=== PATIENT | male | born 1945 | race Caucasian/White ===

== ENCOUNTER 2016-12-21 09:32 | Day surgery (SDC) | payer MEDICARE, BC ==
--- NOTE | ~2016-12-21 | EGD ---
EGD REPORT [facility] [address] [place] [address] NAME: SUNNY BROWN : [birth year] STATUS : REG [facility]#: [id number] AGE: 71 ADM/REG DATE : 12/21/16 MR#: [id number] REPORT SERV DATE: 12/21/16 DICTATED BY: BALDO RIOS DATE: 12/21/16 REPORT STATUS : Draft [facility]ANSCRIBED BY: [facility] DATE: 12/21/16 Endoscopy Center Patient Name: Sunny Brown Date of : 1945 Attending MD: BALDO RIOS MD Procedure Date No Time: 12/21/2016 Procedure: Colonoscopy Indications: Chronic diarrhea Referring MD: Lev Lares Medicines: Propofol per Anesthesia Complications: No immediate complications. Procedure: Pre-Anesthesia Assessment: - ASA Grade Assessment: III - A patient with severe systemic disease. After I obtained informed consent, the scope was passed under direct vision. Throughout the procedure, the patient's blood pressure, pulse, and oxygen saturations were monitored continuously. The CF [id number] was introduced through the anus and advanced to the cecum, identified by appendiceal orifice and ileocecal valve. The colonoscopy was performed without difficulty. The patient tolerated the procedure well. The quality of the bowel preparation was good. Findings: The perianal and digital rectal examinations were normal. Two sessile polyps were found in the sigmoid colon. The polyps were 5 to 7 mm in size. These polyps were removed with a hot snare. Resection and retrieval were complete. Rest of the colon was normal Random biopsies of the colon were obtained to rule out microscopic colitis. Impression: - Two 5 to 7 mm polyps in the sigmoid colon. Resected and retrieved. Recommendation: - Discharge patient to home (ambulatory). - Return to nurse practitioner in 3 weeks. Procedure Code(s): --- Professional --- 39192, Colonoscopy, flexible, proximal to splenic flexure; with removal of tumor(s), polyp(s), or other lesion(s) by snare technique Diagnosis Code(s): --- Professional --- EGD REPORT [address] [place]. [address] NAME: SUNNY BROWN : [birth year] STATUS : REG [facility] PAT#: [id number] AGE: 71 ADM/REG DATE : 12/21/16 MR#: [id number] REPORT SERV DATE: 12/21/16 DICTATED BY: BALDO RIOS. DATE: 12/21/16 REPORT STATUS : Draft TRANSCRIBED BY: [employer] DATE: 12/21/16 D12.5, Benign neoplasm of sigmoid colon K52.9, Noninfective gastroenteritis and colitis, unspecified CPT copyright 2013 [employer]. All rights reserved. The codes documented in this report are preliminary and upon mechanical maintenance foreman review may be revised to meet current compliance requirements. Baldo Rios MD BALDO RIOS MD 12/21/2016 11:13 AM This report has been signed electronically. Number of Addenda: 0 Note Initiated On: 12/21/2016 10:49 AM Scope Withdrawal Time 0 hours 0 minutes [address] [place] [id number]
--- NOTE | ~2016-12-21 | EGD ---
EGD REPORT [facility] [address] [address] NAME: SUNNY BROWN : [birth year] STATUS : REG [facility]#: [id number] AGE: 71 ADM/REG DATE : 12/21/16 MR#: [id number] REPORT SERV DATE: 12/21/16 DICTATED BY: BALDO RIOS DATE: 12/21/16 REPORT STATUS : Draft [facility]ANSCRIBED BY: [facility] DATE: 12/21/16 Endoscopy Center Patient Name: Sunny Brown Date of : 1945 Attending MD: BALDO RIOS MD Procedure Date No Time: 12/21/2016 Procedure: Upper GI endoscopy Indications: Abdominal bloating, Diarrhea Referring MD: Lev Lares Medicines: Propofol per Anesthesia Complications: No immediate complications. Procedure: Pre-Anesthesia Assessment: - ASA Grade Assessment: III - A patient with severe systemic disease. After obtaining informed consent, the endoscope was passed under direct vision. Throughout the procedure, the patient's blood pressure, pulse, and oxygen saturations were monitored continuously. The GIF [id number] was introduced through the mouth, and advanced to the second part of duodenum. The upper GI endoscopy was accomplished without difficulty. The patient tolerated the procedure well. Findings: A small hiatus hernia was present. Diffuse mild inflammation characterized by erosions and erythema was found in the stomach. Biopsies were taken with a cold forceps for histology. The examined duodenum was normal. Biopsies were taken with a cold forceps for histology. Impression: - Hiatus hernia. - Chronic gastritis. Biopsied. - Normal examined duodenum. Biopsied. Recommendation: - Discharge patient to home (ambulatory). - Return to nurse practitioner in 3 weeks. Procedure Code(s): --- Professional --- 89679, Esophagogastroduodenoscopy, flexible, transoral; with biopsy, single or multiple Diagnosis Code(s): --- Professional --- K44.9, Diaphragmatic hernia without obstruction or gangrene EGD REPORT [facility] [address] [place]. [address] NAME: SUNNY BROWN JR : 43 STATUS : REG [facility] PAT#: [id number] AGE: 71 ADM/REG DATE : 12/21/16 MR#: [id number] REPORT SERV DATE: 12/21/16 DICTATED BY: BALDO RIOS. DATE: 12/21/16 REPORT STATUS : Draft TRANSCRIBED BY: [employer] DATE: 12/21/16 K29.50, Unspecified chronic gastritis without bleeding R14.0, Abdominal distension (gaseous) R19.7, Diarrhea, unspecified CPT copyright 2013 [employer]. All rights reserved. The codes documented in this report are preliminary and upon lead generation marketing manager review may be revised to meet current compliance requirements. Baldo Rios MD BALDO RIOS MD 12/21/2016 10:51 AM This report has been signed electronically. Number of Addenda: 0 Note Initiated On: 12/21/2016 10:41 AM Scope Withdrawal Time 0 hours 0 minutes 0 seconds [address] [place] [address]
[~2016-12-21 09:32] MED LIST: ACET500CAP PO; ASAB PO; FISH-EPA1000 MG PO; GLUCPH PO; HARD NAILS PO; L-LYSINE ACE500 MG PO; MAX25 PO; MULTIVITAMI1 PO; PRAVACHOL40 MG PO; TYLENOL PM PO; ZYRTEC ALLGY10 MG PO
== END 2016-12-21 23:59 | disposition home or self-care (01) ==
LOC: DMU 09:32
PROVIDERS: Internal Medicine Gastroenterology
PROC: 0DB68ZX Excision of Stomach, Via Natural or Artificial Opening Endoscopic, Diagnostic (ICD-10-PCS; 2016-12-21)
PROC: 0DBN8ZX Excision of Sigmoid Colon, Via Natural or Artificial Opening Endoscopic, Diagnostic (ICD-10-PCS; principal; 2016-12-21 11:00)
PROC: 0DBE8ZX Excision of Large Intestine, Via Natural or Artificial Opening Endoscopic, Diagnostic (ICD-10-PCS; 2016-12-21 11:00)
PROC: 0DB98ZX Excision of Duodenum, Via Natural or Artificial Opening Endoscopic, Diagnostic (ICD-10-PCS; 2016-12-21 11:00)
DX: D12.5 Benign neoplasm of sigmoid colon (principal); K52.9 Noninfective gastroenteritis and colitis, unspecified; K44.9 Diaphragmatic hernia without obstruction or gangrene; E78.5 Hyperlipidemia, unspecified; E11.9 Type 2 diabetes mellitus without complications; N40.0 Benign prostatic hyperplasia without lower urinary tract symptoms; E78.00 Pure hypercholesterolemia, unspecified; M19.90 Unspecified osteoarthritis, unspecified site; Z88.8 Allergy status to other drugs, medicaments and biological substances; Z87.891 Personal history of nicotine dependence; Z79.82 Long term (current) use of aspirin; Z79.899 Other long term (current) drug therapy; Z90.49 Acquired absence of other specified parts of digestive tract; Z98.890 Other specified postprocedural states; Z88.1 Allergy status to other antibiotic agents; Z98.41 Cataract extraction status, right eye; Z98.42 Cataract extraction status, left eye
CPT/HCPCS: 82962; 88305